=== PATIENT | male | born 2000 | race Caucasian/White ===

== ENCOUNTER 2025-09-13 18:22 | Emergency (ER) | payer BC ==
[~2025-09-13] VITALS: Ht 177.8 cm; Wt 107.5 kg
[2025-09-13 18:43] VITALS: TEMP 98.2
[2025-09-13] MEDS ORDERED: ONDANSETRON HCL/PF 4 MG/2 ML VIAL ONE (19:04)
[2025-09-13] MEDS: IV NS 0.9% 1,000 ML BAG IV ONE (19:10)
[2025-09-13] MEDS: ONDANSETRON HCL/PF 4 MG/2 ML VIAL IVP ONE (19:10)
[2025-09-13 19:15] LABS: PLATELET COUNT (AUTO) 308 K/uL (150-450); RED BLOOD CELL COUNT(AUTO) 5.00 MIL/uL (4.5-6.0); RED CELL DISTRIBUTION WIDTH 12.8 % (11.5-15.0); WHITE BLOOD COUNT (AUTO) 7.9 K/uL (4.3-11.0)
[2025-09-13 19:22] LABS: CALCIUM, SERUM 8.9 mg/dL (8.5-10.1); CREATININE 0.7 mg/dL (0.6-1.3); SODIUM SERUM 138.0 mmol/L (136-145); UREA NITROGEN, BLOOD 12.0 mg/dL (7-18)
[2025-09-13 19:30] LABS: ASPARTATE AMINOTRANSFERASE 18.0 U/L (15-37); TOTAL PROTEIN, SERUM 7.4 g/dL (6.4-8.2)
[2025-09-13 19:48] LABS: APPEARANCE,URINE CLEAR (CLEAR); BLOOD, URINE Trace-intact Ery/uL (NEGATIVE); LEUKOCYTE ESTERASE ,URINE Negative (NEGATIVE); NITRITE, URINE NEGATIVE (NEGATIVE); UGLUCOSE Negative (NEGATIVE)
[2025-09-13 20:09] LABS: ADD URINE CULTURE NO; SQUAMOUS EPITHELIAL CELL,UR None Seen /HPF (None Seen)
[2025-09-13] MEDS ORDERED: POLY17PO4 PO (20:46)
[2025-09-13] MEDS ORDERED: IBUP-1490 PO (20:46)
[2025-09-13 21:00] VITALS: BP 120/77; O2SAT 98
== END 2025-09-13 21:01 | disposition home or self-care (01) ==
LOC: ER 18:29
DX: K59.00 Constipation, unspecified (principal); B34.9 Viral infection, unspecified; R10.84 Generalized abdominal pain; R11.0 Nausea; R51.9 Headache, unspecified; Z20.822 Contact with and (suspected) exposure to COVID-19
CPT/HCPCS: 99284; 96374; 96361; 87426; 74018; 85025; 80048; 83690; 80076; 81001; 36415; J2405; J7030 ×2